=== PATIENT | female | born 1965 | race Caucasian/White ===

== ENCOUNTER 2020-01-14 07:03 | Inpatient (IN) ==
--- NOTE | 2020-01-06 13:55 | PAT Medication Instructions ---
Medication Instructions Date of Service January 06, 2020 Home Medications ascorbic acid (vitamin C) [Vitamin C] 500 mg PO QAM aspirin 81 mg PO QAM biotin 5,000 mcg PO QAM calcium carbonate [Calcium 600] 600 mg PO QAM cholecalciferol (vitamin D3) [Vitamin D3] 50 mcg PO BID famotidine 20 mg PO BID gabapentin 400 mg PO TID iron 1 tab PO QAM lamotrigine 150 mg PO QPM magnesium 250 mg PO BID meloxicam 15 mg PO DAILY PRN multivitamin 1 tab PO QAM multivitamin with minerals [Hair,Skin and Nails] 2 tab PO QAM potassium gluconate 595 mg PO QAM trazodone 150 mg PO HS ASK your surgeon for instructions meloxicam 15 mg PO DAILY PRN DO NOT take the morning of surgery ascorbic acid (vitamin C) [Vitamin C] 500 mg PO QAM biotin 5,000 mcg PO QAM calcium carbonate [Calcium 600] 600 mg PO QAM cholecalciferol (vitamin D3) [Vitamin D3] 50 mcg PO BID iron 1 tab PO QAM magnesium 250 mg PO BID multivitamin 1 tab PO QAM multivitamin with minerals [Hair,Skin and Nails] 2 tab PO QAM potassium gluconate 595 mg PO QAM Take morning of surgery With a small sip of water, OTHERWISE NOTHING TO EAT OR DRINK AFTER MIDNIGHT: aspirin 81 mg PO QAM famotidine 20 mg PO BID gabapentin 400 mg PO TID Take evening before surgery cholecalciferol (vitamin D3) [Vitamin D3] 50 mcg PO BID famotidine 20 mg PO BID gabapentin 400 mg PO TID lamotrigine 150 mg PO QPM magnesium 250 mg PO BID trazodone 150 mg PO HS Other Notes If you have any questions please call us at [phone] or [phone] or [phone] or [phone]
--- NOTE | 2020-01-09 11:09 | Anesthesiology Consultation ---
Date of Service January 09, 2020 Assessment & Plan (1) Encounter for pre-operative examination: Per PAT assessment on 01/08: Travel screen negative. No known COVID-19 positive contacts. No current COVID-19 related symptoms. Patient had preop COVID testing done 01/08 ([facility]). Awaiting results. - ASA instructions: okay to continue perioperatively Chart Review Chart Review: Acceptable Risk for Surgery (pending surgeon-ordered PCP clearance) and Patient seen in Pre Admission Testing Teaching & Discussion Pre-Anesthesia Teaching/Discussion Notes: Instructed NPO after midnight before surgery,except medications with 15 cc of water. Medication instructions provided according to the PAT guidelines. History Surgery Operation Date: 01/14/20 11:50 Proposed Procedures p Right Anterior Total Hip Arthroplasty - Raul Grover DO Height/Weight Height: 5 ft 3 in Weight: 72.6 kg Allergies Allergy/AdvReac Type Severity Reaction Status Date / Time celecoxib [From Celebrex] Allergy Rash Verified 01/03/20 08:50 Medications Home Medications Medication Instructions Recorded Confirmed Last Taken ascorbic acid (vitamin C) [Vitamin 500 mg PO QAM 01/03/20 01/03/20 Unknown C] aspirin 81 mg PO QAM 01/03/20 01/03/20 Unknown biotin 5,000 mcg PO QAM 01/03/20 01/03/20 Unknown calcium carbonate [Calcium 600] 600 mg PO QAM 01/03/20 01/03/20 Unknown cholecalciferol (vitamin D3) 50 mcg PO BID 01/03/20 01/03/20 Unknown [Vitamin D3] famotidine 20 mg PO BID 01/03/20 01/03/20 Unknown gabapentin 400 mg PO TID 01/03/20 01/03/20 Unknown iron 1 tab PO QAM 01/03/20 01/03/20 Unknown lamotrigine 150 mg PO QPM 01/03/20 01/03/20 Unknown magnesium 250 mg PO BID 01/03/20 01/03/20 Unknown meloxicam 15 mg PO DAILY PRN 01/03/20 01/03/20 Unknown multivitamin 1 tab PO QAM 01/03/20 01/03/20 Unknown multivitamin with minerals 2 tab PO QAM 01/03/20 01/03/20 Unknown [Hair,Skin and Nails] potassium gluconate 595 mg PO QAM 01/03/20 01/03/20 Unknown trazodone 150 mg PO HS 01/03/20 01/03/20 Unknown Nadira's wort 1 tab PO DAILY 01/09/20 01/09/20 Unknown Past Medical History Medical History (Updated 01/09/20 @ 11:14 by Shantel Johnson) Anemia recently started on iron daily Anxiety Chronic back pain Clenching of teeth mouth guard qHS Degenerative disc disease Depression Fibromyalgia GERD (gastroesophageal reflux disease) controlled Osteoarthritis Exercise / Class Metabolic Activity III < 4 Walking/Shop/Light housework Past Family History Family History Other No family history of adverse response to anesthesia Past Surgical History Surgical History History of breast biopsy History of section History of cystoscopy History of D&C x2 History of fusion of cervical spine Limited ROM up/down and side to side History of left hip replacement History of reversal of tubal ligation History of tonsillectomy and adenoidectomy History of tooth extraction History of tubal ligation Past Anesthesia History No Hx of Anesthesia Complications and No Family Hx of Anesthesia Complications History of PONV No Hx of PONV and No Hx of Motion Sickness Social History Smoking Status: Current every day smoker tobacco type: e-cigarettes Do You Dip or Chew Tobacco: No Smoking End Date: 1 year ago quit cig -- currently vapes Hx Alcohol Use: Yes alcohol intake frequency: holidays/special occasions only Hx Substance Use: No substance use type: does not use Review of Systems Patient denies chest pain, shortness of breath, dyspnea on exertion, joint pain, reflux, cough, wheezing, palpitations. Physical Exam Vital Signs VITALS BP 103/68 P 76 TEMP 98.3 SP02 95%RA RESP 18 PHYSICAL Full neck and c-spine range of motion. Full TMJ range of motion. TMD 2.5 finger breaths Mallampati Score 1 Dentition: upper right removable "false" tooth, several "cracked teeth"-- patient concerned regarding perioperative management of teeth care d/t strong "jaw clenching" when sleeping Lungs: clear throughout to auscultation Cardiac: regular rate and rhythm, no murmurs noted Spine: normal Carotid arteries: negative bruit Extremities: no edema Testing Laboratory Results 01/09/20 11:28 01/09/20 11:28 PT 10.4 Seconds (9.0-12.0) 01/09/20 11:28 INR 1.0 (0.9-1.1) 01/09/20 11:28 APTT 29.3 Seconds (21.0-31.0) 01/09/20 11:28 Hemoglobin A1c 5.5 % (4.5-5.6) 01/09/20 11:28 Urine Color Yellow 01/09/20 Unknown Urine Appearance Clear (Clear) 01/09/20 Unknown Urine pH 7.5 (4.5-7.5) 01/09/20 Unknown Ur Specific [place] 1.009 (1.000-1.030) 01/09/20 Unknown Urine Protein Negative (Negative) 01/09/20 Unknown Urine Glucose (UA) Negative (Negative) 01/09/20 Unknown Urine Ketones Negative (Negative) 01/09/20 Unknown Urine Nitrite Negative (Negative) 01/09/20 Unknown Ur Leukocyte Esterase Negative (Negative) 01/09/20 Unknown Blood Type O Positive 01/09/20 11:28 Antibody Screen NEGATIVE 01/09/20 11:28 Electrocardiogram Date: 01/09/20 NSR at 68bpm. unconfirmed report. Chest X-Ray Date: 01/09/20 FINDINGS: PA and lateral chest radiographs are obtained. No prior studies are available for comparison at the time of dictation. The cardiomediastinal silhouette is unremarkable. The lungs and pleural spaces are clear. There is no pneumothorax. The bony thorax appears intact. Fusion hardware is seen in the lower cervical spine. IMPRESSION: No active disease in the chest.
[2020-01-09 11:53] LABS: Basophils # (auto) 0.03 K/uL (0-0.2); Basophils % (auto) 0.5 %; Eosinophils # (auto) 0.04 K/uL (0-0.5); Eosinophils % (auto) 0.7 %; Hematocrit (blood only) 38.4 % (37-47); Hemoglobin 12.7 g/dL (12.0-16.0); Lymphocytes # (auto) 2.15 K/uL (1.2-3.4); Lymphocytes % (auto) 37.7 %; Mean Corpuscular Hemoglobin 32.2 pg (25-34); Mean Corpuscular Hgb Conc 33.1 g/dL (32-36); Mean Corpuscular Volume 97.2 fL (80-100); Mean Platelet Volume 9.6 fL (7.4-10.4); Monocytes # (auto) 0.36 K/uL (0.11-0.59); Monocytes % (auto) 6.3 %; Neutrophils # (auto) 3.12 K/uL (1.4-6.5); Neutrophils % (auto) 54.8 %; Platelet Count 361 K/uL (130-400); RDW Standard Deviation 50.1 fL (36.4-46.3); Red Blood Count 3.95 M/uL (4.2-5.4)
[2020-01-09 11:54] LABS: Appearance Urine Clear (Clear); Bilirubin Urine Negative (Negative); Blood Urine Negative (Negative); Color Urine Yellow; Glucose Urine UA Negative (Negative); Ketones Urine Negative (Negative); Leukocyte Esterase Urine Negative (Negative); Nitrite Urine Negative (Negative); Protein Urine Negative (Negative); Specific Gravity Urine 1.009 (1.000-1.030); Urobilinogen Urine Negative (Negative); pH Urine 7.5 (4.5-7.5)
--- NOTE | 2020-01-09 12:03 | XRay Report ---
TWO VIEW CHEST CLINICAL HISTORY: Preoperative examination. FINDINGS: PA and lateral chest radiographs are obtained. No prior studies are available for compariso n at the time of dictation. The cardiomediastinal silhouette is unremarkable. The lungs and pleural spaces are clear. There is no pneumothorax. The bony thorax appears intact. Fusion hardware is seen in the lower cervical spine. IMPRESSION: No active disease in the chest. ACT 112: Negative or not required by law. Electronically signed by: Mando Carlton M.D. 01/09/2020 12:02 PM
[2020-01-09 12:04] LABS: Partial Thromboplastin Ratio 1.1; Partial Thromboplastin Time 29.3 Seconds (21.0-31.0); Prothrombin Time 10.4 Seconds (9.0-12.0)
[2020-01-09 12:21] LABS: Albumin Level 3.9 gm/dl (3.4-5.0); BUN Creatinine Ratio 20.5 (10-20); Calcium 9.2 mg/dl (8.5-10.1); Creatinine Clr Calc Pharmacy 79.7 ml/min; Est GFR (African American) 101.5; Est GFR (Non-African American) 87.5; Potassium 4.3 mmol/L (3.5-5.1)
[2020-01-09 12:30] LABS: Estimated Average Glucose 111 mg/dl; Hemoglobin A1C 5.5 % (4.5-5.6)
--- NOTE | 2020-01-09 17:33 | Electrocardiogram Report ---
Test Reason : Blood Pressure : / mmHG Vent. Rate : 068 BPM Atrial Rate : 068 BPM P-R Int : 162 ms QRS Dur : 074 ms QT Int : 380 ms P-R-T Axes : 077 074 076 degrees QTc Int : 404 ms Normal sinus rhythm Normal ECG No previous ECGs available Confirmed by Ozzy Vasquez ([id number]) on 01/09/2020 5:33:21 PM Referred By: Raul Grover Confirmed By:Beau Vasquez
--- NOTE | 2020-01-12 12:01 | History & Physical Report ---
Date of Service January 14, 2020 Assessment & Plan (1) Degenerative joint disease of right hip: I have indicated the patient for right anterior total hip replacement. The risks, benefits and complications of surgery were explained to the patient which include but not limited to infection, acute blood loss, DVT/PE, injury to nerves, vessels, bone, soft tissue, arthrofibrosis, chronic pain, failure of the prosthesis, hip dislocation, leg length discrepancy, need for additional surgery, cardiac and pulmonary events and . The patient wished to proceed with surgery and informed consent was obtained at this time. We will plan for 81mg ASA BID post-operatively for DVT prophylaxis. Upon discharge the patient will be discharged home with home health services. Appropriate clearances by PCP were obtained. History of Present Illness Chief Complaint: Right hip pain/djd Primary Care Provider: Dr. Harini Nicholas The patient is a 54 year old female who presents with complaints of severe right hip pain and DJD. The patient has failed outpatient conservative treatments to this point which included NSAIDs, IA corticosteroid injection, home exercise/walking program. The patient's pain and limited function have progressed to the point where they severely hinder their activities of daily living and they no longer tolerate exercise programs. They are requesting to proceed with total hip replacement surgery. Allergies Allergy/AdvReac Type Severity Reaction Status Date / Time celecoxib [From Celebrex] Allergy Intermediate Rash Verified 01/14/20 07:47 Home Medications Home Medications Medication Instructions Recorded Confirmed Type ascorbic acid (vitamin C) [Vitamin 500 mg PO QAM 01/03/20 01/14/20 History C] aspirin 81 mg PO QAM 01/03/20 01/14/20 History biotin 5,000 mcg PO QAM 01/03/20 01/14/20 History calcium carbonate [Calcium 600] 600 mg PO QAM 01/03/20 01/14/20 History cholecalciferol (vitamin D3) 50 mcg PO BID 01/03/20 01/14/20 History [Vitamin D3] famotidine 20 mg PO BID 01/03/20 01/14/20 History gabapentin 400 mg PO TID 01/03/20 01/14/20 History iron 1 tab PO QAM 01/03/20 01/14/20 History lamotrigine 150 mg PO QPM 01/03/20 01/14/20 History magnesium 250 mg PO BID 01/03/20 01/14/20 History meloxicam 15 mg PO DAILY PRN 01/03/20 01/14/20 History multivitamin 1 tab PO QAM 01/03/20 01/14/20 History multivitamin with minerals 2 tab PO QAM 01/03/20 01/14/20 History [Hair,Skin and Nails] potassium gluconate 595 mg PO QAM 01/03/20 01/14/20 History trazodone 150 mg PO HS 01/03/20 01/14/20 History Nadira's wort 1 tab PO DAILY 01/09/20 01/14/20 History Past Med/Surg History Medical History Anemia recently started on iron daily Anxiety Chronic back pain Clenching of teeth mouth guard qHS Degenerative disc disease Depression Fibromyalgia GERD (gastroesophageal reflux disease) controlled Osteoarthritis Surgical History History of breast biopsy History of section History of cystoscopy History of D&C x2 History of fusion of cervical spine Limited ROM up/down and side to side History of left hip replacement History of reversal of tubal ligation History of tonsillectomy and adenoidectomy History of tooth extraction History of tubal ligation Family History Other No family history of adverse response to anesthesia Social History Smoking Status: Current every day smoker Smoking End Date: 1 year ago quit cig -- currently vapes; Second Hand Exposure: Yes (as a child and ex bf smoked); Do You Dip or Chew Tobacco: No; Tobacco Cessation Education Requested by Patient: No Hx Alcohol Use: Yes Hx Substance Use: No Preferred Language: Sinhala Communication Ability: Effective Poultry And Fish Butcher Required: No Beliefs That Will Affect Care: None Current Living Situation: Family Current Living Situation Comment: son lives with pt Feels Safe at Home: Yes Safety Concerns: Feels Safe At This Time Review of Systems Review of Systems: All systems reviewed & are unremarkable except as noted in HPI & below Constitutional: as per Subjective / HPI Physical Exam Physical Exam: RLE NVSI +EHL/FHL/TA/GS SILT grossly, +2 DP pulse, compartments soft NT, limited painful ROM of the hip, antalgic gait. Constitutional: WD/WN, vitals as above Eyes: PERRL, conjunctivae normal, anicteric sclerae ENMT: external ear and nose normal, oropharynx normal Neck: trachea midline, no thyromegaly Respiratory: normal respiratory effort, lungs clear to auscultation Cardiovascular: RRR, no murmur, no edema Gastrointestinal (Abdomen): normal bowel sounds, soft, nontender, no hepatosplenomegaly Musculoskeletal: no cyanosis or clubbing, extremities motor strength 5/5 Skin: no rashes, warm and dry Neurologic: patellar DTR's 2+ bilat, sensation intact Psychiatric: A+Ox3, euthymic affect Lymphatic: no cervical or axillary lymphadenopathy Results & Data Results & Data ([facility]) Diagnostic Findings Multiple views of the hip demonstrates severe DJD with complete loss of the joint space. +osteophytes, +sclerosis, +subchondral cysts.
[~2020-01-14 07:03] MED LIST: ACETAMINOPHEN 500 MG TAB PO SCH; BUPIVACAINE 0.5 % 5 MG/1 ML PF 10ML VIAL ONE; CEFAZOLIN 1000MG 1,000 MG/7.5 ML SYR IV SCH; CeleBREX 200 MG CAP PO SCH; FAMOTIDINE 20 MG TAB PO SCH; GABAPENTIN 900 MG DOSE PO SCH; LR 500ML BOLUS, THEN 15ML/HR IV SCH; METOCLOPRAMIDE HCL 10 MG TABLET PO SCH; ROPIVACAINE 0.5% HCL/PF 150 MG, BUPIVACAINE 0.5% MPF 30 ML, EPINEPHrine 30MG/30ML (OR U... INFIL SCH; TRANEXAMIC ACID 1,000 MG **IV Intra-op IV SCH; TRANEXAMIC ACID 1,000 MG **IV Pre-op IV SCH; dexAMETHasone 4 MG TAB PO SCH
[2020-01-14] MEDS ORDERED: fentaNYL citrate 100 MCG/2 ML VIAL ONE (09:28)
[2020-01-14] MEDS ORDERED: MIDAZOLAM HCL 1 MG/ML 2ML VIAL ONE (09:28)
[2020-01-14] MEDS ORDERED: PROPOFOL IV EMULSION 10 MG/ML 20 ML VIAL IV ONE (09:28)
--- NOTE | 2020-01-14 09:55 | History & Physical Bridge Note ---
Date of Service January 14, 2020 History & Physical Bridge Note I have examined the patient, reviewed the History & Physical and in the interval since the performance of the History & Physical I have noted the following changes of clinical significance: no changes noted
[2020-01-14] MEDS ORDERED: ePHEDrine sulfate 50 MG/ML AMP IV PRN (09:57)
[2020-01-14] MEDS ORDERED: ONDANSETRON INJ 2 MG/ML 2 ML VIAL IV PRN ×2 (09:57→13:31)
[2020-01-14] MEDS ORDERED: fentaNYL citrate 100 MCG/2 ML VIAL IV PRN (09:57)
[2020-01-14] MEDS ORDERED: ATROPINE SULFATE 0.1 MG/ML 10ML SYR IV PRN (09:57)
[2020-01-14] MEDS ORDERED: ORTHO JOINT ANESTHETIC ONE (09:57)
[2020-01-14] MEDS ORDERED: BACITRACIN INJ 50,000 UNIT VIAL ONE ×2 (09:57→10:52)
[2020-01-14] MEDS ORDERED: PHENYLEPHRINE HCL 10 MG/ML VIAL ONE (10:58)
--- NOTE | 2020-01-14 12:07 | Fluoroscopy Report ---
FL hip RT 1V CLINICAL HISTORY: RT ANTERIOR TOTAL COMPARISON STUDY: None. FLUOROSCOPY TIME: 40 seconds. FLUOROSCOPIC IMAGES: 2 FINDINGS: Fluoroscopy was provided during total right hip arthroplasty. The hardware is intact. There is an acetabular screw. No fracture is noted by fluoroscopy. Left hip arthroplasty is noted. IMPRESSION: Fluoroscopy provided for total right hip arthroplasty. ACT 112: Negative or not required by law. Electronically signed by: John Vick M.D. 01/14/2020 12:06 PM
--- NOTE | 2020-01-14 12:14 | Post Operative Brief Note ---
Immediate Post Op Note v1 Date of Surgery January 14, 2020 Pre & Post Diagnosis Operation Date: 01/14/20 09:50 Pre-Op Diagnosis: Unilateral Primary Osteoarthritis, Right Hip Post-Op Diagnosis: Unilateral Primary Osteoarthritis, Right Hip I identified the patient and participated in the time-out.: Yes Procedure Operation Date: 01/14/20 09:50 Actual Procedures p Right Anterior Total Hip Arthroplasty(Right) - Raul Grover DO Surgeon Raul Grover DO Feeder Loader Tr Kirby Estimated Blood Loss 165 Findings Consistent with Post-Op Diagnosis Fluids 1400 cc LR Specimens femoral head Anesthesia Type Spinal MAC Complications none Disposition Disposition: Recovery Room Overlapping Procedure I was present for: the critical portions of procedure. I was immediately available: during the entire case. Back up surgeon: was not required during procedure.
--- NOTE | 2020-01-14 12:18 | Operative Report ---
Post Operative Report Pre & Post Diagnosis Operation Date: 01/14/20 09:50 Pre-Op Diagnosis: Unilateral Primary Osteoarthritis, Right Hip Post-Op Diagnosis: Unilateral Primary Osteoarthritis, Right Hip I identified the patient and participated in the time-out.: Yes Procedure Operation Date: 01/14/20 09:50 Actual Procedures p Right Anterior Total Hip Arthroplasty(Right) - Raul Grover DO Surgeon Raul Grover DO Parts Salesman Tr Kirby Estimated Blood Loss 165 Findings Consistent with Post-Op Diagnosis Fluids 1400 cc LR Specimens femoral head Anesthesia Type Spinal MAC Complications none Disposition Disposition: Recovery Room Indications The patient is a 54-year-old female who presents with severe progressive right hip DJD who has failed outpatient conservative treatments. I indicated the patient for a total hip replacement and the risks and benefits were explained in detail which included but not limited to infection, bleeding, blood clot, damage to surrounding bone, nerves, vessels, soft tissue, hip dislocation, failure of the prosthesis, leg length discrepancy, need for additional surgery and . The patient agreed to proceed with replacement of the hip and informed consent was obtained. Appropriate clearances were obtained. Description of Procedure COMPONENTS USED: [employer] hip system: Acetabulum size 48, femur size 4 high offset, femoral head 32-3, liner 4832, acetabular screw 25 mm x 1. DESCRIPTION OF PROCEDURE: Following satisfactory spinal anesthesia, the patient was placed supine on the OR table. The left leg was placed in the well leg calvo and the right leg in the traction device. The right leg was prepared with ChloraPrep and draped sterilely. A surgical timeout was performed, patient identified and site lloyd verified. Appropriate antibiotics were given. A standard anterior approach in the interval between the sartorius and tensor muscles was performed. Dissection was carried down through subcutaneous tissues. Electrocautery was utilized for hemostasis. Circumflex femoral vessels were identified, tied and ligated. The anterior capsular fat pad was removed and the capsulotomy was performed revealing the arthritic femoral neck and head. A femoral neck cut was made with reciprocating saw and the bone fragments removed. The acetabular self-retraining retractor was placed. Acetabular reaming was completed under fluoroscopic guidance, a 48 shell was impacted into an anatomic position and secured with a dome screw. Local anesth etic was placed and following irrigation, the polyethylene liner was placed. The femur was placed into position of external rotation, extension and adduction. Femoral canal was prepared up to the size 4 high offset. Trial reduction with a 32-3 neck length head showed good soft tissue tension, leg lengths restored, and good fit and fill of the proximal canal using fluoroscopic landmarks. The hip was dislocated. The trial component was removed. The final implant was placed. The hip was irrigated with sterile saline solution and reduced. A Betadine soak was performed. After 3 minutes, the hip was once more irrigated with copious sterile saline solution with bacitracin. Argelia-incisional soft tissue was injected utilizing [place] [employer] which includes a combination of Ropivicaine 0.5% 150mg, Bupivicaine 0.5%/Epinephrine 1:200,000 30ml, Toradol 30mg, Dexamethasone 4mg, Ketamine 10mg, Clonidine 100mcg and NSS 30ml solution. The capsule was then closed with 1-0 Vicryl interrupted figure of eight sutures. The fascia was closed with a running suture of #1 Vicryl, the subcutaneous tissues with 2-0 Vicryl and the skin was closed with chanda. A sterile dry dressing was applied which included Amy incisional VAC. The patient tolerated the procedure well and was transported to PACU in stable condition. Due to the complex nature of the procedure, the entire surgery was performed with the operational assistance of Tr Kirby PA-C. The retail event and sales assistant, under direct supervision, was involved in the actual performance of all aspects of the surgical procedure including patient positioning, hemostasis, tissue retraction, instrument management and wound closure. I attest to the content of the Intraoperative Record and any orders documented therein. Any exceptions are noted below.
--- NOTE | 2020-01-14 12:58 | XRay Report ---
XR hip 1V RT w pelvis CLINICAL HISTORY: IN PACU - A/P PELVIS and LATERAL HIP COMPARISON: None. DISCUSSION: Anatomic alignment post total right hip arthroplasty. Good contact between prosthetic and underlying bone. No evidence for acetabular protrusion. Pre-existing total left hip arthroplasty. Expected postoperative soft tissue change IMPRESSION: Anatomic alignment post total right hip arthroplasty. ACT 112: Negative or not required by law. The above report was generated using voice recognition software. It may contain grammatical, syntax or spelling errors. Electronically signed by: Richar Hale M.D. 01/14/2020 12:57 PM
--- NOTE | 2020-01-14 13:22 | Anesthesiology Progress Note ---
Date of Service January 14, 2020 Anesthesia Post Procedure Vital Signs Vital Signs: Temp Pulse Pulse Resp BP Pulse Ox 01/14/20 13:00 87 18 102/66 98 01/14/20 12:50 36.4 C L 87 20 100/66 97 01/14/20 12:40 81 16 98/74 L 99 01/14/20 12:34 36 C L 83 18 91/67 L 100 01/14/20 08:31 72 18 115/77 98 01/14/20 07:40 36.8 C 82 16 121/75 98 Pain Intensity Right Hip: Pain Intensity: 8 Transfer of Care Handoff Completed per policy Notes Mental Status: alert / awake / arousable and participated in evaluation Nausea / Vomiting: adequately controlled Pain: adequately controlled Airway Patency, RR, SpO2: stable & adequate BP & HR: stable & adequate Hydration State: stable & adequate Neuraxial Anesthesia: was administered and sensory block is resolving Anesthetic Complications: no major complications apparent and Pt Satisfied with anesthetic care
[2020-01-14] MEDS ORDERED: bisacodyL 10 MG SUPP PR PRN (13:31)
[2020-01-14] MEDS ORDERED: METOCLOPRAMIDE HCL INJ 5 MG/ML 2 ML VIAL IV PRN (13:31)
[2020-01-14] MEDS ORDERED: MAGNESIUM HYDROXIDE SUSP 30 ML UDC PO PRN (13:31)
[2020-01-14] MEDS ORDERED: HYDROmorphone INJ 0.5 MG/0.5 ML SYR IV PRN (13:31)
[2020-01-14] MEDS ORDERED: NALOXONE HCL 0.4 MG/1 ML VIAL/CARP IV PRN (13:31)
[2020-01-14] MEDS: SODIUM CHLORIDE 0.9% 1000ML 1,000 ML IV SCH ×2 (13:49→23:34)
[2020-01-14] MEDS: GABAPENTIN 400 MG CAP PO SCH ×2 (14:46→21:37)
[2020-01-14] MEDS: ACETAMINOPHEN 500 MG TAB PO SCH ×2 (14:47→21:37)
[2020-01-14] MEDS: KETOROLAC TROMETHAMINE 15 MG/ML VIAL IV SCH ×2 (14:49→19:28)
--- NOTE | 2020-01-14 16:11 | Orthopedic Progress Note ---
Date of Service January 14, 2020 Assessment & Plan (1) Degenerative joint disease of right hip: Status post right anterior total hip arthroplasty -Ancef x24 -DVT prophylaxis: SCDs, teds, 81mg ASA BID -PT/OT -Weight-bear as tolerates right lower extremity -Postoperative x-ray demonstrates a well aligned well fixed total hip prosthesis without evidence of fracture or dislocation. -A.m. lab -DC planning Admission and Anticipated Discharge Date Admission Date: January 14, 2020 Subjective Post Operative Progress Note Patient seen sitting up in bed, comfortable, denies complaints, pain well controlled, no acute issues. Review of Systems Review of Systems: All systems reviewed & are unremarkable except as noted in HPI & below Constitutional: as per Subjective / HPI Physical Exam Physical Exam: RLE NVSI +EHL/FHL/TA/GS SILT grossly, +2 DP pulse, compartments soft NT, dressing cdi. Constitutional: WD/WN, vitals as above Results & Data ([facility]) Vital Signs (Past 12 Hours) Vital Signs Temp Pulse Pulse Resp BP BP Pulse Ox 01/14/20 15:15 36.7 C 88 16 107/69 98 01/14/20 14:15 36.6 C 91 H 16 120/83 96 01/14/20 13:44 36.4 C L 82 15 117/77 100 01/14/20 13:15 36.4 C L 81 14 109/72 100 01/14/20 13:00 87 18 102/66 98 01/14/20 12:50 36.4 C L 87 20 100/66 97 01/14/20 12:40 81 16 98/74 L 99 01/14/20 12:34 36 C L 83 18 91/67 L 100 01/14/20 08:31 72 18 115/77 98 01/14/20 07:40 36.8 C 82 16 121/75 98
[2020-01-14] MEDS: OXYCODONE HCL IR 5 MG TAB (IMMEDIATE RELEASE) PO PRN ×3 (16:19→23:38)
[2020-01-14] MEDS: CEFAZOLIN 2000MG 2,000 MG/15 ML SYR IV SCH (17:21)
[2020-01-14] MEDS ORDERED: lamoTRIgine 100 MG TAB PO SCH (21:00)
[2020-01-14] MEDS ORDERED: SENNA 8.6 MG TAB PO SCH (21:00)
[2020-01-14] MEDS: DOCUSATE SODIUM 100 MG CAP PO SCH (21:36)
[2020-01-14] MEDS: FAMOTIDINE 20 MG TAB PO SCH (21:37)
[2020-01-15] MEDS: KETOROLAC TROMETHAMINE 15 MG/ML VIAL IV SCH ×2 (01:19→07:24)
[2020-01-15] MEDS: CEFAZOLIN 2000MG 2,000 MG/15 ML SYR IV SCH (01:19)
[2020-01-15] MEDS: ACETAMINOPHEN 500 MG TAB PO SCH ×2 (05:27→12:55)
[2020-01-15 06:02] LABS: Basophils # (auto) 0.01 K/uL (0-0.2); Basophils % (auto) 0.1 %; Eosinophils # (auto) 0.01 K/uL (0-0.5); Eosinophils % (auto) 0.1 %; Hematocrit (blood only) 31.5 % (37-47); Hemoglobin 10.4 g/dL (12.0-16.0); Immature Granulocytes # (auto) 0.03 K/uL (0.00-0.02); Immature Granulocytes % (auto) 0.2 %; Lymphocytes # (auto) 1.69 K/uL (1.2-3.4); Lymphocytes % (auto) 10.3 %; Mean Corpuscular Hemoglobin 32.7 pg (25-34); Mean Corpuscular Volume 99.1 fL (80-100); Mean Platelet Volume 9.9 fL (7.4-10.4); Monocytes # (auto) 1.35 K/uL (0.11-0.59); Monocytes % (auto) 8.2 %; Neutrophils # (auto) 13.38 K/uL (1.4-6.5); Neutrophils % (auto) 81.1 %; Platelet Count 328 K/uL (130-400); RDW Coefficient of Variation 14.2 % (11.5-14.5); Red Blood Count 3.18 M/uL (4.2-5.4); White Blood Count 16.47 K/uL (4.8-10.8)
[2020-01-15 06:28] LABS: BUN Creatinine Ratio 16.1 (10-20); Calcium 8.4 mg/dl (8.5-10.1); Creatinine Clr Calc Pharmacy 70.4 ml/min; Est GFR (African American) 87.5; Est GFR (Non-African American) 75.5; Potassium 4.3 mmol/L (3.5-5.1)
--- NOTE | 2020-01-15 07:44 | Orthopedic Progress Note ---
Date of Service January 15, 2020 Assessment & Plan (1) Degenerative joint disease of right hip: Status post right anterior total hip arthroplasty POD#1 -Ancef x24 -DVT prophylaxis: SCDs, teds, 81mg ASA BID -PT/OT -Weight-bear as tolerates right lower extremity -Postoperative x-ray demonstrates a well aligned well fixed total hip prosthesis without evidence of fracture or dislocation. -A.m. lab - as above, hgb 10.4 -DC planning - Home with Admission and Anticipated Discharge Date Admission Date: January 14, 2020 Subjective Post Operative Progress Note Patient seen sitting in chair at bedside, comfortable, denies complaints, pain well controlled, no acute issues. Denies F/C/N/V/SOB/CP. Review of Systems Review of Systems: All systems reviewed & are unremarkable except as noted in HPI & below Constitutional: as per Subjective / HPI Physical Exam Physical Exam: RLE NVSI +EHL/FHL/TA/GS SILT grossly, +2 DP pulse, compartments soft NT, dressing cdi. Results & Data ([facility]) Vital Signs (Past 12 Hours) Vital Signs Temp Pulse Resp BP Pulse Ox 01/15/20 07:03 37.0 C 68 16 100/66 98 01/15/20 03:00 36.8 C 74 18 102/68 98 01/14/20 23:10 37.1 C 70 16 103/65 96 Laboratory Results 01/15/20 01/15/20 01/15/20 Range/Units 05:33 05:33 05:33 WBC 16.47 H (4.8-10.8) K/uL RBC 3.18 L (4.2-5.4) M/uL Hgb 10.4 L (12.0-16.0) g/dL Hct 31.5 L (37-47) % MCV 99.1 (80-100) fL MCH 32.7 (25-34) pg MCHC 33.0 (32-36) g/dL RDW Std Deviation 51.0 H (36.4-46.3) fL RDW Coeff of Renard 14.2 (11.5-14.5) % Plt Count 328 (130-400) K/uL MPV 9.9 (7.4-10.4) fL Immature Gran % (Auto) 0.2 % Neut % (Auto) 81.1 % Lymph % (Auto) 10.3 % [place] % (Auto) 8.2 % Eos % (Auto) 0.1 % Baso % (Auto) 0.1 % Neut # (Auto) 13.38 H (1.4-6.5) K/uL Lymph # (Auto) 1.69 (1.2-3.4) K/uL [place] # (Auto) 1.35 H (0.11-0.59) K/uL Eos # (Auto) 0.01 (0-0.5) K/uL Baso # (Auto) 0.01 (0-0.2) K/uL Immature Gran # (Auto) 0.03 H (0.00-0.02) K/uL Sodium 140 (136-145) mmol/L Potassium 4.3 (3.5-5.1) mmol/L Chloride 107 (98-107) mmol/L Carbon Dioxide 28 (21-32) mmol/L Anion Gap 5.0 (3-11) BUN 14 (7-18) mg/dl Creatinine 0.87 (0.6-1.2) mg/dl Est Cr Clr Drug Dosing 70.4 ml/min Est GFR ( Amer) 87.5 Est GFR (Non-Af Amer) 75.5 BUN/Creatinine Ratio 16.1 (10-20) Glucose 115 H (70-99) mg/dl Calcium 8.4 L (8.5-10.1) mg/dl POC Ur Test (NEG) Hepatitis C Ab Screen Pending 01/14/20 Range/Units 07:39 WBC (4.8-10.8) K/uL RBC (4.2-5.4) M/uL Hgb (12.0-16.0) g/dL Hct (37-47) % MCV (80-100) fL MCH (25-34) pg MCHC (32-36) g/dL RDW Std Deviation (36.4-46.3) fL RDW Coeff of Renard (11.5-14.5) % Plt Count (130-400) K/uL MPV (7.4-10.4) fL Immature Gran % (Auto) % Neut % (Auto) % Lymph % (Auto) % [place] % (Auto) % Eos % (Auto) % Baso % (Auto) % Neut # (Auto) (1.4-6.5) K/uL Lymph # (Auto) (1.2-3.4) K/uL [place] # (Auto) (0.11-0.59) K/uL Eos # (Auto) (0-0.5) K/uL Baso # (Auto) (0-0.2) K/uL Immature Gran # (Auto) (0.00-0.02) K/uL Sodium (136-145) mmol/L Potassium (3.5-5.1) mmol/L Chloride (98-107) mmol/L Carbon Dioxide (21-32) mmol/L Anion Gap (3-11) BUN (7-18) mg/dl Creatinine (0.6-1.2) mg/dl Est Cr Clr Drug Dosing ml/min Est GFR ( Amer) Est GFR (Non-Af Amer) BUN/Creatinine Ratio (10-20) Glucose (70-99) mg/dl Calcium (8.5-10.1) mg/dl POC Ur Test NEG (NEG) Hepatitis C Ab Screen
[2020-01-15] MEDS: OXYCODONE HCL IR 5 MG TAB (IMMEDIATE RELEASE) PO PRN ×2 (08:38→12:54)
[2020-01-15] MEDS: DOCUSATE SODIUM 100 MG CAP PO SCH (08:39)
[2020-01-15] MEDS: GABAPENTIN 400 MG CAP PO SCH ×2 (08:40→12:55)
[2020-01-15] MEDS: FAMOTIDINE 20 MG TAB PO SCH (08:40)
[2020-01-15] MEDS ORDERED: NON-FORMULARY MEDICATION (Potassium Gluconate 595 MG) PO SCH (09:00)
[2020-01-15] MEDS ORDERED: ASPIRIN 81 MG ECTAB PO SCH (09:00)
[2020-01-15] MEDS ORDERED: MULTIVITAMIN TAB PO SCH (09:00)
--- NOTE | 2020-01-15 21:20 | Discharge Summary ---
Date of Service January 15, 2020 Admission HPI Per Admitting Provider The patient is a 54 year old female who presents with complaints of severe right hip pain and DJD. The patient has failed outpatient conservative treatments to this point which included NSAIDs, IA corticosteroid injection, home exercise/walking program. The patient's pain and limited function have progressed to the point where they severely hinder their activities of daily living and they no longer tolerate exercise programs. They are requesting to proceed with total hip replacement surgery. Principal Diagnosis Right anterior total hip replacement -Right hip DJD Discharge Exam RLE NVSI +EHL/FHL/TA/GS SILT grossly, +2 DP pulse, compartments soft NT, dressing cdi. Constitutional WD/WN, vitals as above Discharge Data Allergies Allergy/AdvReac Type Severity Reaction Status Date / Time celecoxib [From Celebrex] Allergy Intermediate Rash Verified 01/14/20 07:47 Consultations 01/15/20 08:00 Consult Case Management - Discharge Planning Routine Procedures Performed Operation Date: 01/14/20 09:50 Actual Procedures p Right Anterior Total Hip Arthroplasty(Right) - Raul Grover DO Ordered Studies 01/14/20 09:50 FL fluoroscopy <1hr Routine FL hip RT 1V Routine Hospital Course (1) Degenerative joint disease of right hip: The patient is a 54 -year-old female who presents with long standing hi story of severe right hip DJD and failed outpatient conservative treatments. The patient's symptoms have progressed to the point where it has been difficult to perform even normal activities of daily living. I indicated the patient for a right anterior total hip arthroplasty, the risks, benefits and complications of the procedure include but not limited to infection, bleeding, damage to bone, nerves, vessels, surrounding soft tissue, may develop blood clots, loss of function, leg length discrepancy, dislocation, failure of the components, loosening of the components, the need for additional surgery and . The patient wished to proceed with surgery at this time and informed consent was obtained. Hospital Course: On 01/13/20 the patient was taken to the operating room, adequate anesthesia administered and underwent a right anterior total hip arthroplasty. The patient tolerated the procedure well and was taken to the PACU in stable condition. Post-operatively the patient was started on a DVT ppx medication and given appropriate IV antibiotics. Consults were placed to physical therapy, occupational therapy and case management. On POD#1, the patient did well overnight and their pain was well controlled. Labs were drawn and the Hgb was 10.4. The patient progressed well with PT. Dressings were changed at this time and the incision was clean, dry and intact. The patients hospital stay was relatively uneventful and they were deemed stable by the orthopedic team and consultants to be discharged home with on 01/14/20. Discharge Instructions: Upon discharge the patient may weight bear as tolerates through their operative extremity. They were instructed to keep the incision clean and dry at all times. The patient may shower but should not submerge the incision, avoid bathing, pools and hot tubes. The patient was given a script for pain medication and should take as instructed. The patient was given a script for DVT ppx 81mg ASA BID and should take as directed. The patient was instructed to not drive or travel for long distances until cleared to do so. If the patient develops any symptoms of fevers, chills, nausea, vomiting, increased redness, swelling, pain or drainage from the surgical site, they should notify the office and/or proceed to the nearest emergency room. The patient should follow up in 10-14 days after surgery for their routine post-operative follow-up appointment and should call the office to confirm the date and time. Status post right anterior total hip arthroplasty POD#1 -Ancef x24 -DVT prophylaxis: SCDs, teds, 81mg ASA BID -PT/OT -Weight-bear as tolerates right lower extremity -Postoperative x-ray demonstrates a well aligned well fixed total hip prosthesis without evidence of fracture or dislocation. -A.m. lab - as above, hgb 10.4 -DC planning - Home with Total Time Total Time Spent Total Time Spent (In Minutes): 30 Discharge Plan Discharge Items Patient Disposition: Home - Home Health Services Reason For Visit: Unilateral Primary Osteoarthritis, Right Hip Discharge Diagnosis: Right anterior total hip replacement Condition on Discharge: Good Activity: Per Instructions section Lifting: Wait until after follow-up appointment Bathing: Keep incision dry Bathing Comment: No bathing, pools or hot tubs. Sexual Activity: Wait until after follow-up appointment Exercise/Sports: Wait until after follow-up appointment Driving/Machine Use: No driving Weightbearing: Full weightbearing Non-emergency contact: Primary Care Provider and Surgeon Call non-emergency contact if: you have any medication questions, your symptoms worsen, your pain is not controlled, your pain is worsening, your pain is unusual for you, your pain is concerning for you, you have a fever, your temperature is above 101, your wound has increased redness, your wound has increased drainage and your wound pain has increased Follow-up/Referrals: PCP,NO [Primary Care Provider] - Diet: Regular Addtl Attending Provider Instructions: ACTIVITY RECOMMENDATIONS: SELF CARE INSTRUCTIONS AFTER TOTAL HIP REPLACEMENT : Direct Anterior Approach Until the incision and soft tissues around your hip have healed, there is a possibility that the hip prosthesis could dislocate. A. Hip flexion ( Up & Down out of chair or steps ) may be difficult. This is normal. B. Numbness in front of the thigh is also normal for a few weeks. C. Use hand rails when walking on stairs. D. Wear low heeled shoes with non-slip soles. E. Be sure that your floors are free of things that could trip you - throw rugs, electrical cords, small objects. Avoid wet and waxed floors, especially with crutches and canes. F. Try to walk several times a day with rest periods between. G. Continue with all the exercises taught to you in the hospital. Again, make walking a part of your daily routine. SPECIAL CARE INSTRUCTIONS: VERY IMPORTANT TO READ AND REVIEW A. You may still be at risk for phlebitis and blood clots. 1. Wear surgical stockings (ADRY hose) for 2 weeks after surgery to improve circulation and reduce swelling. 2. Take Aspirin 81mg twice daily for 4 weeks or as directed by your doctor. This is your blood thinner. 3. High risk patients may be prescribed a stronger blood thinner if necessary. 4. If you are on Coumadin normally, your family doctor/electric motorman should monitor your blood work. Expect a phone call the day of or the day after bloodwork is drawn to adjust your dosage. B. You must take antibiotics before having dental work, bladder, bowel and other surgery. Your doctor will provide you with a permanent card to carry describing precautions. C. Call [facility] if you have a fever, redness or swelling around the incision, cloudy drainage from incision, or sudden increase in pain in your hip, not relieved by your regular pain medication. D. Please call the office at if you have any concerns or questions about your operation or recovery. * YOU MAY SHOWER, NO TUB BATHS UNTIL CLEARED BY YOUR DOCTOR. - Keep an extra close eye on the top portion of your incision. Be sure to keep clean & dry. * WEAR ADRY HOSE 20 HOURS PER DAY FOR 2 WEEKS. * YOU MAY PROGRESS FROM A WALKER, TO A CANE, TO INDEPENDENT AT YOUR OWN PACE. * MOST PATIENTS WILL HAVE HOME NURSING FOR THERAPY. IF YOU DECIDE TO DO OUTPATIENT PHYSICAL THERAPY, PLEASE SCHEDULE THIS 3 TIMES PER WEEK. * DERMABOND Prineo- This is a mesh tape dressing that is covered with glue. It should remain in place until the incision is properly healed, usually 10-14 days. This dressing is designed to naturally slough off. You may trim the excess mesh tape as it peels off. Incision may be briefly wet in a shower. Dry immediately by blotting with a clean, dry towel. Do not bath or swim until instructed by your doctor. Do not scratch, rub, or pick at the dressing. Do not apply any topical ointments or lotions until dressing is completely removed and/or instructed by your doctor. There may be a small piece of suture material at one end of your incision. Do not pull or trim this. If it is bothersome or catching on clothing, you may cover it with a band-aid. FOLLOW UP VISIT: If appointment is not already scheduled: Please call [facility] to make a follow-up appointment for 2 weeks after your surgery at . Pending Studies at Discharge: No Stand-Alone Forms: My [facility]g, Opioid Pain Management, Smoking Cessation Medications and DC Order Prescriptions: New aspirin 81 mg Tablet,Delayed Release (Dr/Ec) 81 mg PO BID Qty: 56 RF: 0 acetaminophen 500 mg Tablet 1,000 mg PO Q8 PRN (Reason: pain/fevers) Qty: 90 RF: 0 oxycodone 5 mg Tablet 5 mg PO Q6H MDD 4 PRN (Reason: pain) Qty: 30 RF: 0 sennosides [Senokot] 8.6 mg Tablet 17.2 mg PO HS PRN (Reason: constipation) Qty: 28 RF: 0 Continued multivitamin Tablet 1 tab PO QAM RF: 0 lamotrigine 150 mg Tablet 150 mg PO QPM RF: 0 gabapentin 400 mg Capsule 400 mg PO TID RF: 0 calcium carbonate [Calcium 600] 600 mg calcium (1,500 mg) Tablet 600 mg PO QAM RF: 0 famotidine 20 mg Tablet 20 mg PO BID RF: 0 ascorbic acid (vitamin C) [Vitamin C] 500 mg Tablet 500 mg PO QAM RF: 0 magnesium 250 mg Tablet 250 mg PO BID RF: 0 multivitamin with minerals [Hair,Skin and Nails] Tablet 2 tab PO QAM RF: 0 potassium gluconate 595 mg (99 mg) Tablet 595 mg PO QAM RF: 0 cholecalciferol (vitamin D3) [Vitamin D3] 50 mcg (2,000 unit) Capsule 50 mcg PO BID RF: 0 biotin 5,000 mcg Tablet,Disintegrating 5,000 mcg PO QAM RF: 0 iron 1 tab PO QAM RF: 0 Nadira's wort 1 tab PO DAILY RF: 0 Discontinued meloxicam 15 mg Tablet 15 mg PO DAILY PRN (Reason: Pain) RF: 0 aspirin 81 mg Tablet,Delayed Release (Dr/Ec) 81 mg PO QAM RF: 0 trazodone 150 mg Tablet 150 mg PO HS RF: 0 Discharge Orders: Discharge Order (Routine); Ordered 01/15/20 Ordered By: Raul Montano/Other Patient Handouts: DVT Post Op Prevention, Total Hip Replacement, Understanding Hip Replacement Admission Data Admit Date/Time: 01/14/20 13:28 Attending Provider: Raul Grover Admit Provider: Raul Grover Primary Care Provider: PCP,NO Other Providers: [facility]Home [facility] Other Interventions: Discharge Summary Assessment (RN) Last Done: 01/15/20 10:20
== END 2020-01-15 13:32 | disposition home health service (06) | DRG 470 ==
LOC: ASU 07:03 → 3E 13:28